=== PATIENT | female | born 1975 | race Caucasian/White ===

== ENCOUNTER → 2016-10-02 | Outpatient (CLI) | payer OTHER ==
[~2016-10-02] MED LIST: AMBIEN 10MG10 MG PO; OXY IR5 MG PO; OXYCONTIN30 MG PO
== END ==
LOC: COL.RAD 20:54
DX: M79.604 Pain in right leg (principal); Z86.718 Personal history of other venous thrombosis and embolism

== ENCOUNTER → 2017-05-20 | Outpatient (CLI) | payer OTHER | LOC: MHCPAIN 11:41 | DX: G89.29 Other chronic pain (principal); M47.27 Other spondylosis with radiculopathy, lumbosacral region | CPT/HCPCS: G0463 ==

== ENCOUNTER 2020-02-16 20:04 | Emergency (ER) | payer OTHER ==
[~2020-02-16] VITALS: Ht 172.7 cm; Wt 111.4 kg
[2020-02-16 20:32] VITALS: TEMP 98.6
[2020-02-16 22:41] LABS: BASO # 0.1 (0.0-0.2); BASO % 0.7 % (0.0-2.0); EOS # 0.4 (0.0-0.7); GRAN # 3.6 (1.4-6.5); GRAN % 49.7 % (42.2-75.2); HEMATOCRIT 39.9 % (37.0-47.0); HEMOGLOBIN 13.4 g/dl (12.5-16.0); LYMPH # 2.4 (1.2-3.4); LYMPH % 34.1 % (20.0-51.0); MEAN CELL VOLUME 91 fl (80.0-100.0); MEAN CORPUSCULAR HEMOGLOBIN 31 pg (27.0-31.0); MEAN CORPUSCULAR HGB CONC 34 g/dl (33.0-37.0); MONO # 0.7 (0.1-0.6); MONO % 9.4 % (1.7-9.3); PLATELET COUNT 209 K/mm3 (130-400); RED BLOOD COUNT 4.38 M/mm3 (4.10-5.30); REDCELL DISTRIBUTION WIDTH-CV 12.7 % (11.5-14.5)
[2020-02-16 22:45] LABS: PROTHROMBIN TIME 11.1 SECONDS (9.7-12.8)
[2020-02-16 22:48] LABS: PARTIAL THROMBOPLASTIN TIME 28.9 SECONDS (26.0-37.0)
[2020-02-16 22:52] LABS: C-REACTIVE PROTEIN 1.3 mg/dL (0.0-0.9); CALCIUM 9.5 mg/dL (8.4-10.2); CREATININE, serum 0.82 (0.52-1.25); POTASSIUM 3.8 mmol/L (3.4-5.0)
[2020-02-16 23:41] VITALS: BP 128/89; PULSE 82
== END 2020-02-16 23:41 | disposition home or self-care (01) ==
LOC: COL.ER 20:04
PROVIDERS: Emergency Medicine
DX: M79.662 Pain in left lower leg (principal); M79.661 Pain in right lower leg; M79.89 Other specified soft tissue disorders; Z95.828 Presence of other vascular implants and grafts; Z88.2 Allergy status to sulfonamides; Z88.8 Allergy status to other drugs, medicaments and biological substances; Z86.718 Personal history of other venous thrombosis and embolism; Z86.711 Personal history of pulmonary embolism